=== PATIENT | male | born 1980 | race Native Hawaiian/Other Pacific Islander ===

== ENCOUNTER 2017-11-05 18:40 | Emergency (ER) | payer OTHER ==
[~2017-11-05] VITALS: Ht 182.9 cm; Wt 110.2 kg
[2017-11-05 19:51] LABS: PLATELET COUNT 234 K/uL (142-355)
[2017-11-05 20:42] LABS: POTASSIUM 3.7 mmol/L (3.6-5.2); SODIUM 140 mmol/L (136-145)
[2017-11-05 22:39] VITALS: BP 134/99; TEMP 98.5
== END 2017-11-05 22:39 ==
LOC: ED 18:40
DX: F13.10 Sedative, hypnotic or anxiolytic abuse, uncomplicated (principal); F20.9 Schizophrenia, unspecified; F31.9 Bipolar disorder, unspecified; F32.9 Major depressive disorder, single episode, unspecified
CPT/HCPCS: 36415; 80053; 80307; 80320; 80329; 81000; 85027; 93005; 99285